=== PATIENT | male | born 2000 | race Caucasian/White ===

== ENCOUNTER 2025-03-13 09:52 | Observation (INO) ==
--- NOTE | 2025-03-13 10:06 | Emergency Department Note ---
Impression & Plan Hydronephrosis, right, Right ureteral calculus, Vomiting ED Provider Note NAME: ILIR DANIEL AGE: 24 SEX: M : 2000 ARRIVES VIA: Walk-In INFORMANT: Patient ED PROVIDER(S): Pablo Diego DO CHIEF COMPLAINT: Right lower quadrant abdominal pain HPI: Patient is a 24-year-old male who presents to the ER for dysuria which has been going on for the past 3 days. He notes right lower quadrant pain that started today. He admits to nausea and vomiting. Denies any headache or change in vision. No testicle swelling or pain. No urgency or frequency. Father provides additional history and notes that he has had previous surgery which includes cholecystectomy. No other exacerbating or remitting factors. ADDITIONAL HISTORY OBTAINED: Per HPI Chronic Medical/Social Conditions Affecting Care: Per HPI PAST MEDICAL HISTORY:See Below PAST SURGICAL HISTORY:See Below FAMILY HISTORY:See Below SOCIAL HISTORY:See Below HOME MEDICATIONS:See Below ALLERGIES:See Below VITALS:See Below PHYSICAL EXAMINATION: GENERAL: Sitting up in bed, alert, significant distress holding right side EYE EXAM: normal conjunctiva. OROPHARYNX: no exudate, no erythema, lips, buccal mucosa, and tongue normal and mucous membranes are moist NECK: supple, no nuchal rigidity, no adenopathy, non-tender LUNGS: Clear to auscultation. Normal chest wall mechanics HEART: no murmurs, S1 normal and S2 normal ABDOMEN: abdomen soft, tender palpation right lower quadrant, normo-active bowel sounds, no masses, no rebound or guarding. : No testicular swelling or pain. UPPER EXTREMITIES: upper extremities are grossly normal. LOWER EXTREMITIES: No pitting edema. NEURO EXAM: Normal sensorium, cranial nerves II-XII grossly intact, normal speech, no gross weakness of arms, no gross weakness of legs. MEDICAL DECISION MAKING: Patient is a 24-year-old male who presents ER for above-stated complaint. IV was established blood work is obtained. Labs show no significant leukocytosis or anemia. BMP with LFTs bilirubin and lipase is unremarkable. UA with hematuria. No signs of infection. CT abdomen pelvis suggested a 4 mm distal UVJ stone. He had persistent vomiting while in the ER. Was given IV Zofran, IV Reglan and IV Phenergan and still vomiting. He was given multiple dose of IV narcotics. He was updated at bedside. Discussed case with the hospitalist for further evaluation management treatment. Consults/Care Managements Discussions: Per MDM Triage Nursing notes reviewed. Limited review of prior medical records performed Vital Signs: reviewed and remarkable for no significant abnormalities Differential diagnosis: Differential diagnoses includes but is not limited to gastritis, peptic ulcer disease, GERD, gallbladder disease, pancreatitis, small bowel obstruction, appendicitis, diverticulitis, hernia, urinary tract infection, torsion, perforation, trauma, infectious. ER treatment provided: See below Diagnostics interpreted by me include EKG and cardiac monitoring as listed below: -Cardiac Monitoring: An order was placed for continuous cardiac monitoring. The monitor shows a rate of 70 with sinus rhythm. -ECG: none -Laboratory studies:Interpreted by me as stated above in MDM and shown below. Imaging studies: Xrays: As interpreted by me:none CTs show: CT abdomen pelvis per my pulmonary interpretation shows hydronephrosis CT Abdo pelvis per radiology as described above Procedures:none Critical Care: None Past Med/Surg History Problem List (Updated 03/13/25 @ 15:45 by Pablo Diego DO) Vomiting (Acute) Right ureteral calculus (Acute) Hydronephrosis, right (Acute) Afterimage Asthma Surgical History History of cholecystectomy Hx of tonsillectomy [place] teeth extracted Family History Father Asthma Hypertension Grandfather (Maternal) Colorectal cancer Denies family history of Ovarian cancer Prostate cancer Diabetes Heart disease Myocardial infarction Breast cancer Lung cancer COPD (chronic obstructive pulmonary disease) Pulmonary embolism Stroke Social History Smoking Status: Never smoker Second Hand Exposure: No; Do You Dip or Chew Tobacco: No; Hx Alcohol Use: Yes Hx Substance Use: No Preferred Language: Malay Communication Ability: Effective Visual Impairment: No Limitations Hearing Ability: Normal marital status: Current Living Situation: Spouse Current Living Situation Comment: current occupational status: employed current occupation: real estate financial analyst How many Children do You have: 0 Feels Safe at Home: Yes Childhood Exposure to Second-Hand Smoke: No Diet: regular caffeine: Yes during the past year weight has: remained stable Dental Care, Regularly: Yes Physical Activity Frequency: 5-6 Times per Week Seatbelt Use: always Sunscreen Use: Yes Assistive Devices: None Allergies Allergies Allergy/AdvReac Type Severity Reaction Status Date / Time Penicillins Allergy Severe Verified 01/16/25 08:17 latex Allergy Intermediate Verified 01/16/25 08:17 Home Meds Home Medications Medication Instructions Recorded Confirmed albuterol inhaler inhalation PRN 08/07/23 01/16/25 fish oil supplement PO DAILY 01/16/25 vitamin d3 PO DAILY 01/16/25 Results & Data (ED) Vital Signs Vital Signs - 24 hr 03/13/25 09:54 03/13/25 09:58 03/13/25 11:00 Temperature 36.3 C L Temperature Source Oral Pulse Rate 67 67 64 Pulse Rate from SpO2 Sensor 63 Pulse Rhythm Regular Respiratory Rate 24 20 14 Respiratory Effort / Characteristics Non-Labored Spontaneous Respiratory Depth Normal Respiratory Pattern Tachypnea Blood Pressure 156/111 H 147/102 H Blood Pressure Mean 126 117 Blood Pressure Position Sitting Pulse Oximetry 100 97 98 Oxygen Delivery Method Room Air Room Air Sepsis Recent Fever Within 48 Hours No Sepsis New/Unexplained Change in Mental Status No Sepsis Action Taken by Nursing No Action Required 03/13/25 11:33 03/13/25 12:00 03/13/25 12:18 Temperature Temperature Source Pulse Rate 57 L 72 65 Pulse Rate from SpO2 Sensor 58 L 71 Pulse Rhythm Respiratory Rate 18 21 Respiratory Effort / Characteristics Respiratory Depth Respiratory Pattern Blood Pressure 154/101 H 144/93 H Blood Pressure Mean 118 110 Blood Pressure Position Pulse Oximetry 98 97 Oxygen Delivery Method Sepsis Recent Fever Within 48 Hours Sepsis New/Unexplained Change in Mental Status Sepsis Action Taken by Nursing 03/13/25 12:39 03/13/25 13:18 03/13/25 14:03 Temperature Temperature Source Pulse Rate 67 72 68 Pulse Rate from SpO2 Sensor 66 69 69 Pulse Rhythm Respiratory Rate 20 22 18 Respiratory Effort / Characteristics Respiratory Depth Respiratory Pattern Blood Pressure 148/91 H 148/92 H 139/94 Blood Pressure Mean 110 110 109 Blood Pressure Position Pulse Oximetry 97 97 97 Oxygen Delivery Method Sepsis Recent Fever Within 48 Hours Sepsis New/Unexplained Change in Mental Status Sepsis Action Taken by Nursing Laboratory Data 03/13/25 10:07 03/13/25 10:07 Lab Results 03/13/25 03/13/25 Range/Units 10:05 10:07 WBC 5.41 (4.8-10.8) K/ul RBC 5.67 (4.70-6.10) M/uL Hgb 16.0 (14.0-18.0) g/dl Hct 46.6 (42.0-52.0) % MCV 82.2 (80.0-100.0) fL MCH 28.2 (25.0-34.0) pg MCHC 34.3 (32.0-36.0) g/dL RDW Std Deviation 37.0 (36.4-46.3) fL RDW Coeff of [place] 12.3 (11.5-14.5) % Plt Count 284 (130-400) K/uL MPV 10.0 (9.4-12.4) fL Immature Gran % (Auto) 0.2 % Neut % (Auto) 46.1 % Lymph % (Auto) 43.1 % [place] % (Auto) 6.7 % Eos % (Auto) 2.6 % Baso % (Auto) 1.3 % Neut # (Auto) 2.50 (1.40-6.50) K/uL Lymph # (Auto) 2.33 (1.20-3.40) K/uL [place] # (Auto) 0.36 (0.11-0.59) K/uL Eos # (Auto) 0.14 (0.00-0.50) K/uL Baso # (Auto) 0.07 (0.00-0.20) K/uL Immature Gran # (Auto) 0.01 (0.01-0.20) K/uL Sodium 140 (136-145) mmol/L Potassium 3.6 (3.5-5.1) mmol/L Chloride 102 (98-107) mmol/L Carbon Dioxide 23 (21-32) mmol/L Anion Gap 15 H (3-11) BUN 16 (6-23) mg/dl Creatinine 1.31 (0.6-1.4) mg/dl Est Cr Clr Drug Dosing Not Reportable eGFR 76.99 BUN/Creatinine Ratio 12.2 (10-20) Glucose 140 H (70-99(Fasting)) mg/dl Calcium 10.0 (8.6-10.3) mg/dl Total Bilirubin 0.9 (0.2-1.0) mg/dl AST 26 (13-39) U/L ALT 16 (7-52) U/L Alkaline Phosphatase 61 (34-104) U/L Total Protein 8.0 (6.0-8.3) gm/dl Albumin 4.9 (3.4-5.0) gm/dl Globulin 3.1 (2.5-4.0) gm/dl Albumin/Globulin Ratio 1.6 (0.9-2) Lipase 20 (11-82) U/L Urine Color Yellow Urine Appearance Clear (Clear) Urine pH 6.0 (4.5-7.5) Ur Specific [place] 1.025 (1.000-1.030) Urine Protein Trace H (Negative) Urine Glucose (UA) Negative (Negative) Urine Ketones 1+ H (Negative) Urine Blood 2+ H (Negative) Urine Nitrite Negative (Negative) Urine Bilirubin Negative (Negative) Urine Urobilinogen Negative (Negative) Ur Leukocyte Esterase Negative (Negative) Urine WBC (Auto) 0-5 (0-5) /hpf Urine RBC (Auto) >20 H (0-2) /hpf U Hyaline Cast (Auto) 0-2 (0-2) /lpf U Epithel Cells (Auto) 0-2 (0-2) /hpf Urine Bacteria (Auto) None Seen (None Seen) Urine Comment Administered Medications Sodium Chloride (Nss) 1,000 mls @ 125 mls/hr IV .Q8H [facility] Stop: 03/16/25 14:14 Last Admin: 03/13/25 15:08 Dose: 125 mls/hr Documented By: VILMA Discontinued Medications Sodium Chloride (Nss) 1,000 mls @ 999 mls/hr IV .Q1H1M ONE Stop: 03/13/25 10:58 Last Infusion: 03/13/25 11:43 Dose: Infused Documented By: Admin: 03/13/25 10:12 Dose: 999 mls/hr Documented By: SOFIA Sodium Chloride (Nss) 1,000 mls @ 999 mls/hr IV .Q1H1M [facility] Stop: 03/13/25 12:15 Last Admin: 03/13/25 11:43 Dose: Not Given Documented By: Infusion: 03/13/25 11:43 Dose: Infused Documented By: Admin: 03/13/25 10:12 Dose: 999 mls/hr Documented By: SOFIA Promethazine HCl (Phenergan) 25 mg in 51 mls @ 204 mls/hr IV NOW STA Stop: 03/13/25 13:44 Last Infusion: 03/13/25 14:20 Dose: Infused Documented By: Admin: 03/13/25 13:44 Dose: 204 mls/hr Documented By: RAUL Ioversol (Optiray 320 100ml) 94 ml IV ONCE ONE Stop: 03/13/25 11:46 Last Admin: 03/13/25 11:45 Dose: 94 ml Documented By: JOEL Ketorolac Tromethamine (Ketorolac Tromethamine 15 Mg/Ml Vial) 15 mg IV NOW ONE Stop: 03/13/25 10:04 Last Admin: 03/13/25 10:14 Dose: 15 mg Documented By: SOFIA Metoclopramide HCl (Metoclopramide Hcl Inj 5 Mg/Ml 2 Ml Vial) 10 mg IV NOW STA Stop: 03/13/25 11:21 Last Admin: 03/13/25 11:37 Dose: 10 mg Documented By: SOFIA Morphine Sulfate (Morphine Sulfate 4 Mg/Ml 1 Ml Carp\Vial) 4 mg IV NOW STA Stop: 03/13/25 10:04 Last Admin: 03/13/25 10:14 Dose: 4 mg Documented By: SOFIA Morphine Sulfate (Morphine Sulfate 4 Mg/Ml 1 Ml Carp\Vial) 4 mg IV NOW STA Stop: 03/13/25 11:21 Last Admin: 03/13/25 11:37 Dose: 4 mg Documented By: SOFIA Morphine Sulfate (Morphine Sulfate 4 Mg/Ml 1 Ml Carp\Vial) 4 mg IV NOW STA Stop: 03/13/25 13:31 Last Admin: 03/13/25 13:44 Dose: 4 mg Documented By: RAUL Ondansetron HCl (Ondansetron Inj 2 Mg/Ml 2 Ml Vial) 4 mg IV NOW STA Stop: 03/13/25 09:59 Last Admin: 03/13/25 10:12 Dose: 4 mg Documented By: SOFIA Imaging Data Radiologist's Impression: Abdomen/Pelvis CT 03/13/25 10:[address] WITH IV CONTRAST CT DOSE: 874.03 mGy.cm HISTORY: Acute right lower quadrant abdominal pain rlq abd pain TECHNIQUE: Multiaxial CT images of the abdomen and pelvis were performed following the IV administration of 94 cc of Optiray, A dose lowering technique was utilized adhering to the principles of ALARA. COMPARISON STUDY: None. FINDINGS: The lung bases are clear. Cholecystectomy. Periportal edema likely related to overhydration. The portal vein. The liver, spleen, and agree, and adrenal glands are within normal limits. 4 mm nonobstructing calculus at the interpolar right kidney. Delayed right-sided nephrogram with mild hydroureteronephrosis and perinephric stranding secondary to an obstructing 4 mm calculus of the right UVJ. Decompressed urinary bladder with mild wall thickening. Tiny hiatal hernia. No bowel wall thickening or obstruction. Normal appendix. Unremarkable soft tissues. Transitional lumbosacral anatomy. No acute fracture. IMPRESSION: 1. Mild right-sided hydroureteronephrosis secondary to an obstructing 4 mm calculus of the right UVJ. 2. Nonobstructing right nephrolithiasis. 3. Normal appendix. ACT 112: Negative or not required by law. The above report was generated using voice recognition software. It may contain grammatical, syntax or spelling errors. Electronically signed by: Ervin Egan M.D. 03/13/2025 12:47 PM Discharge Plan Visit Data Chief Complaint: Abdominal Pain Stated Complaint: SEVERE ABDOMINAL PAIN, SHAKES ED Provider: Pablo Diego Discharge Problem: Hydronephrosis, right, Right ureteral calculus, Vomiting Condition: Fair Forms Stand Alone Forms: [employer] Prescriptions Prescriptions: No Action albuterol inhaler inhalation PRN vitamin d3 PO DAILY fish oil supplement PO DAILY Referrals Referrals: Bird Gonzalez DO [Primary Care Provider] - Discharge Problem: Vomiting Qualifiers: Vomiting type: unspecified Nausea presence: unspecified Qualified Code(s): R 11.10 - Vomiting, unspecified
[2025-03-13] MEDS: SODIUM CHLORIDE 0.9% 1,000 ML IV ONE (10:12)
[2025-03-13] MEDS: SODIUM CHLORIDE 0.9% 1,000 ML IV SCH ×2 (10:12→15:08)
[2025-03-13] MEDS: ONDANSETRON INJ 2 MG/ML 2 ML VIAL IV STA (10:12)
[2025-03-13] MEDS: KETOROLAC TROMETHAMINE 15 MG/ML VIAL IV ONE (10:14)
[2025-03-13] MEDS: MoRPHine SULFATE 4 MG/ML 1 ML CARP\\VIAL IV STA ×3 (10:14→13:44)
[2025-03-13 10:32] LABS: Hematocrit (blood only) 46.6 % (42.0-52.0); Hemoglobin 16.0 g/dl (14.0-18.0); Immature Granulocytes # (auto) 0.01 K/uL (0.01-0.20); Immature Granulocytes % (auto) 0.2 %; Mean Corpuscular Hemoglobin 28.2 pg (25.0-34.0); Mean Corpuscular Volume 82.2 fL (80.0-100.0); Platelet Count 284 K/uL (130-400); RDW Standard Deviation 37.0 fL (36.4-46.3); Red Blood Count 5.67 M/uL (4.70-6.10); White Blood Count 5.41 K/ul (4.8-10.8)
[2025-03-13 11:04] LABS: Appearance Urine Clear (Clear); Bacteria Urine Automated None Seen (None Seen); Cast Urine Automated 0-2 /lpf (0-2); Epithelial Cell Urine Auto 0-2 /hpf (0-2); Glucose Urine UA Negative (Negative); RBC Urine Automated >20 /hpf (0-2); WBC Urine Automated 0-5 /hpf (0-5)
[2025-03-13 11:35] LABS: Alanine Aminotransferase 16 U/L (7-52); Albumin Globulin Ratio 1.6 (0.9-2); Albumin Level 4.9 gm/dl (3.4-5.0); Alkaline Phosphatase 61 U/L (34-104); Anion Gap 15 (3-11); Bilirubin,Total 0.9 mg/dl (0.2-1.0); Blood Urea Nitrogen 16 mg/dl (6-23); Calcium 10.0 mg/dl (8.6-10.3); Carbon Dioxide 23 mmol/L (21-32); Chloride 102 mmol/L (98-107); Globulin 3.1 gm/dl (2.5-4.0); Glucose 140 mg/dl (70-99(Fasting)); Lipase 20 U/L (11-82); Potassium 3.6 mmol/L (3.5-5.1); Sodium 140 mmol/L (136-145); Total Protein 8.0 gm/dl (6.0-8.3)
[2025-03-13] MEDS: METOCLOPRAMIDE HCL INJ 5 MG/ML 2 ML VIAL IV STA (11:37)
[2025-03-13] MEDS: OPTIRAY 320 100ml IV ONE (11:45)
--- NOTE | 2025-03-13 12:49 | CT Scan Report ---
ABDOMEN AND PELVIS CT WITH IV CONTRAST CT DOSE: 874.03 mGy.cm HISTORY: Acute right lower quadrant abdominal pain rlq abd pain TECHNIQUE: Multiaxial CT images of the abdomen and pelvis were performed following the IV administrat ion of 94 cc of Optiray, A dose lowering technique was utilized adhering to the principles of ALARA. COMPARISON STUDY: None. FINDINGS: The lung bases are clear. Cholecystectomy. Periportal edema likely related to overhydration . The portal vein. The liver, spleen, and agree, and adrenal glands are within normal limits. 4 mm no nobstructing calculus at the interpolar right kidney. Delayed right-sided nephrogram with mild hydrou reteronephrosis and perinephric stranding secondary to an obstructing 4 mm calculus of the right UVJ. Decompressed urinary bladder with mild wall thickening. Tiny hiatal hernia. No bowel wall thickening or obstruction. Normal appendix. Unremarkable soft tissues. Transitional lumbosacral anatomy. No acu te fracture. IMPRESSION: 1. Mild right-sided hydroureteronephrosis secondary to an obstructing 4 mm calculus of the right UVJ. 2. Nonobstructing right nephrolithiasis. 3. Normal appendix. ACT 112: Negative or not required by law. The above report was generated using voice recognition software. It may contain grammatical, syntax o r spelling errors. Electronically signed by: Ervin Egan M.D. 03/13/2025 12:47 PM
[2025-03-13] MEDS: PROMETHAZINE 25 MG/51 ML BAG IV STA (13:44)
--- NOTE | 2025-03-13 14:11 | History & Physical Report ---
Date of Service March 13, 2025 Assessment & Plan (1) Hydronephrosis, right: Plan: Assessment: 1. Right-sided obstructing urolithiasis 4 mm stone at the right UVJ with associated right-sided hydro ureter and hydronephrosis. NPO. IV fluids. Strain all urine. Urology consulted. Will consider antibiotics if the patient spikes a fever or a leukocytosis excetra. 2. Refractory nausea vomiting secondary to #1. Symptomatic management. 3. Remote history of asthma with no evidence of acute exacerbation. Plan: As discussed above. Please refer to orders for further planning. History of Present Illness Chief Complaint: Right-sided flank pain Primary Care Provider: Bird Gonzalez DO This is a pleasant 24-year-old male who developed right-sided flank pain around 9:00 this morning. He is never had pain like this. It was severe. He presented to the ER for further evaluation and treatment. In the ER his urinalysis showed 2+ blood. Otherwise was negative for infection. CT of the abdomen pelvis showed a right sided 4 mm stone with associated right- sided hydronephrosis. Course in the ER he received a dose of Toradol a total of 12 mg of IV morphine IV promethazine as well as a liter of saline. We are called admit the patient for further evaluation and treatment with ongoing refractory nausea vomiting and pain due to his obstructive uropathy. He is placed a notification in consult to urology for consultation. Will keep the patient NPO. Strain his urine hydrate aggressively as needed antiemetics and analgesics. Allergies Allergy/AdvReac Type Severity Reaction Status Date / Time Penicillins Allergy Severe Verified 01/16/25 08:17 latex Allergy Intermediate Verified 01/16/25 08:17 Home Medications Medication Instructions Recorded Confirmed Type albuterol inhaler inhalation PRN 08/07/23 01/16/25 History fish oil supplement PO DAILY 01/16/25 History vitamin d3 PO DAILY 01/16/25 History Past Med/Surg History Problem List (Updated 03/13/25 @ 14:09 by Agusto Whitley, PhD, ) Hydronephrosis, right Afterimage Asthma Surgical History History of cholecystectomy Hx of tonsillectomy [place] teeth extracted Family History Father Asthma Hypertension Grandfather (Maternal) Colorectal cancer Denies family history of Ovarian cancer Prostate cancer Diabetes Heart disease Myocardial infarction Breast cancer Lung cancer COPD (chronic obstructive pulmonary disease) Pulmonary embolism Stroke Social History Smoking Status: Never smoker Second Hand Exposure: No; Do You Dip or Chew Tobacco: No; Hx Alcohol Use: Yes Hx Substance Use: No Preferred Language: Divehi Communication Ability: Effective Visual Impairment: No Limitations Hearing Ability: Normal marital status: Current Living Situation: Spouse Current Living Situation Comment: current occupational status: employed current occupation: financial advocate How many Children do You have: 0 Feels Safe at Home: Yes Childhood Exposure to Second-Hand Smoke: No Diet: regular caffeine: Yes during the past year weight has: remained stable Dental Care, Regularly: Yes Physical Activity Frequency: 5-6 Times per Week Seatbelt Use: always Sunscreen Use: Yes Assistive Devices: None Review of Systems Review of Systems: A 10 point review of system was obtained and unless otherwise stated here or in history of present illness are negative and noncontributory to chief complaint. Physical Exam Physical Exam: In General: In general pleasant 24-year-old male who is alert and oriented to person and place. He is a little drowsy from the morphine. However he is alert and oriented. He is accompanied by his as well as his mother. He granted permission for both ladies to be present during my interview and exam. Reports that he is a non-smoker does not use alcohol or tobacco products no street drugs is employed as a controller. HEENT: Normocephalic atraumatic pupils are equal round and reactive to light bilaterally. No scleral icterus no conjunctival injection external auditory canals are patent septum is in the midline nose is without discharge oral mucosa is pink and moist without lesion. NECK: Supple no rigidity no lymphadenopathy no thyromegaly no carotid bruits no JVD no masses. HEART: Regular rate and rhythm I do not appreciate any ectopy or rub. No murmur. LUNGS: Clear to auscultation bilaterally and anteriorly with no evidence of adventitious sounds/wheezes rales or rhonchi. ABDOMEN: Soft nontender, no rebound, no peritoneal signs, positive bowel sounds, no appreciable organomegaly. EXTREMITIES: Intact, no peripheral cyanosis, clubbing or edema. Strength is adequate and equal.. NEUROLOGICAL: Cranial nerves II through XII are grossly intact with no focal deficit elicited upon examination. Results & Data Results & Data Vital Signs (Past 12 Hours) Vital Signs Temp Pulse Resp BP Pulse Ox O2 Del Method 03/13/25 12:39 67 20 148/91 H 97 03/13/25 12:18 65 03/13/25 12:00 72 21 144/93 H 97 03/13/25 11:33 57 L 18 154/101 H 98 03/13/25 11:00 64 14 147/102 H 98 03/13/25 09:58 67 20 97 Room Air 03/13/25 09:54 36.3 C L 67 24 156/111 H 100 Room Air Code Status & VTE Plan Code Status Full code. I personally discussed with patient and family at bedside VTE Prophylaxis Plan VTE Prophylaxis will be ordered: Yes PG Care Time/CCT Total # of Minutes Spent Total Time Spent with Patient: Total time spent is greater than 50% in coordination of care (as documented) at patient's floor/unit and/or counseling patient: Coding Level of Care Code 06589 INT INP/OBS CARE 2/55MIN Diagnoses Hydronephrosis, right N13.30
--- NOTE | 2025-03-13 14:38 | Urology Consultation ---
Date of Consultation March 13, 2025 Assessment & Plan (1) Hydronephrosis, right: (2) Right ureteral calculus: Plan 24-year-old male who presented with right flank pain since early this morning. Afebrile with stable vitals. Labs showed a white count of 5.4, creatinine of 1.31 and a urinalysis that was negative outside of microscopic hematuria. A CT scan showed a 4 mm distal right obstructing ureteral calculus and some nonobstructing right renal calculi. I discussed options with him including medical expulsive therapy versus right ureteral stent placement. Based on his level pain control, I suggested a stent placement as I do not think he will tolerate medical expulsive therapy, however he declined. We discussed the chances of him passing the stone and the timeframe it may take. As the patient declined stent placement, we will proceed with medical expulsive therapy. Recommend Flomax and pain control. Urology will sign off. A message has been sent to schedule outpatient follow-up with an ultrasound to confirm passage of stone. I did discuss with the patient that if he declined a stent now, and changed his mind and wanted one later it may not be possible simply based on logistics and availability of on-call surgeon. He expressed understanding. History of Present Illness History of Present Illness 24-year-old male who presented with right flank pain since early this morning. Afebrile with stable vitals. Labs showed a white count of 5.4, creatinine of 1.31 and a urinalysis that was negative outside of microscopic hematuria. A CT scan showed a 4 mm distal right obstructing ureteral calculus and some nonobstructing right renal calculi. He was admitted for pain control and urology was consulted. He was fairly somnolent at the bedside due to pain medication so he was hard to get a good history on. Allergies Allergy/AdvReac Type Severity Reaction Status Date / Time Penicillins Allergy Severe Verified 01/16/25 08:17 latex Allergy Intermediate Verified 01/16/25 08:17 Home Medications Medication Instructions Recorded Confirmed Type albuterol inhaler inhalation PRN 08/07/23 01/16/25 History fish oil supplement PO DAILY 01/16/25 History vitamin d3 PO DAILY 01/16/25 History Patient History Surgical History History of cholecystectomy Hx of tonsillectomy Wall teeth extracted Family History Father Asthma Hypertension Grandfather (Maternal) Colorectal cancer Denies family history of Ovarian cancer Prostate cancer Diabetes Heart disease Myocardial infarction Breast cancer Lung cancer COPD (chronic obstructive pulmonary disease) Pulmonary embolism Stroke Social History Smoking Status: Never smoker Second Hand Exposure: No; Do You Dip or Chew Tobacco: No; Hx Alcohol Use: Yes Hx Substance Use: No Preferred Language: [place] Communication Ability: Effective Visual Impairment: No Limitations Hearing Ability: Normal marital status: Current Living Situation: Spouse Current Living Situation Comment: current occupational status: employed current occupation: vice president financial How many Children do You have: 0 Feels Safe at Home: Yes Childhood Exposure to Second-Hand Smoke: No Diet: regular caffeine: Yes during the past year weight has: remained stable Dental Care, Regularly: Yes Physical Activity Frequency: 5-6 Times per Week Seatbelt Use: always Sunscreen Use: Yes Assistive Devices: None Physical Exam Physical Exam: General: Alert and oriented, no acute distress HEENT: Normocephalic, mucous membranes moist Pulmonary: Nonlabored respirations Abdomen: Nondistended Extremities: Moves all 4 spontaneously Neuro: No gross deficits Skin: Warm, dry, no rashes noted Results & Data Vital Signs (Past 12 Hours) Vital Signs Temp Pulse Resp BP Pulse Ox O2 Del Method 03/13/25 14:03 68 18 139/94 97 03/13/25 13:18 72 22 148/92 H 97 03/13/25 12:39 67 20 148/91 H 97 03/13/25 12:18 65 03/13/25 12:00 72 21 144/93 H 97 03/13/25 11:33 57 L 18 154/101 H 98 03/13/25 11:00 64 14 147/102 H 98 03/13/25 09:58 67 20 97 Room Air 03/13/25 09:54 36.3 C L 67 24 156/111 H 100 Room Air PG Care Time/CCT Total # of Minutes Spent Total Time Spent with Patient: Total time spent is greater than 50% in coordination of care (as documented) at patient's floor/unit and/or counseling patient: Coding Level of Care Code 47159 IN/OBS CONSULT LVL 3,45M Diagnoses Hydronephrosis, right N13.30 Right ureteral calculus N20.1
[2025-03-13] MEDS: HYDROmorphone INJ 0.5 MG/0.5 ML SYR IV PRN (18:00)
[2025-03-13] MEDS: ONDANSETRON INJ 2 MG/ML 2 ML VIAL IV PRN (18:00)
[2025-03-13] MEDS: TAMSULOSIN HCL 0.4 MG CAP PO ONE (22:43)
[2025-03-14 07:00] VITALS: BP 131/81; PULSE 88; RESP 18; TEMP 98.4; O2SAT 97
[2025-03-14 07:12] LABS: Alanine Aminotransferase 11.0 U/L (7-52); Albumin Globulin Ratio 2.0 (0.9-2); Albumin Level 3.8 gm/dl (3.4-5.0); Alkaline Phosphatase 41.0 U/L (34-104); Anion Gap 5.0 (3-11); Bilirubin,Total 1.2 mg/dl (0.2-1.0); Blood Urea Nitrogen 10.0 mg/dl (6-23); Calcium 8.5 mg/dl (8.6-10.3); Carbon Dioxide 27.0 mmol/L (21-32); Chloride 109.0 mmol/L (98-107); Cholesterol 82.0 mg/dl (0-200); Creatinine Clr Calc Pharmacy 102.1 ml/min; Globulin 1.9 gm/dl (2.5-4.0); Glucose 89.0 mg/dl (70-99(Fasting)); HDL Cholesterol 37.0 mg/dl; Magnesium 1.9 mg/dl (1.7-2.4); Potassium 3.8 mmol/L (3.5-5.1); Sodium 141.0 mmol/L (136-145); Total Protein 5.7 gm/dl (6.0-8.3); Triglycerides 44.0 mg/dl (0-150)
[2025-03-14 07:21] LABS: Hematocrit (blood only) 39.6 % (42.0-52.0); Hemoglobin 12.8 g/dl (14.0-18.0); Immature Granulocytes # (auto) 0.01 K/uL (0.01-0.20); Immature Granulocytes % (auto) 0.1 %; Mean Corpuscular Hemoglobin 27.0 pg (25.0-34.0); Mean Corpuscular Volume 83.5 fL (80.0-100.0); Platelet Count 185 K/uL (130-400); RDW Standard Deviation 38.1 fL (36.4-46.3); Red Blood Count 4.74 M/uL (4.70-6.10); White Blood Count 7.25 K/ul (4.8-10.8)
[2025-03-14 07:22] LABS: Thyroid Stimulating Hormone 0.757 uIu/ml (0.300-4.500)
[2025-03-14] MEDS: TAMSULOSIN HCL 0.4 MG CAP PO SCH (08:26)
--- NOTE | 2025-03-14 12:25 | Discharge Summary ---
Discharge Summary Date of Service March 14, 2025 Principal Dx & Hospital Course #1 = Principal Diagnosis (1) Hydronephrosis, right: This is a 24 year old male with no significant PMH; coming in with significant R flank pain. In the ER, CT was done and showed a 4mm R UVJ stone with mild hydroureteronephrosis. Labs were drawn and noted to have a creatinine of 1.31. Patient spoke with urology and did not want a stent placed and wanted medication management. Was started on pain control, IV fluids and Flomax. No leukocytosis or fevers noted. Urology stated they would see the patient as an outpatient. Patient states his pain is improving; denies any other issues at this time. Admission HPI Per Admitting Provider This is a pleasant 24-year-old male who developed right-sided flank pain around 9:00 this morning. He is never had pain like this. It was severe. He presented to the ER for further evaluation and treatment. In the ER his urinalysis showed 2+ blood. Otherwise was negative for infection. CT of the abdomen pelvis showed a right sided 4 mm stone with associated right- sided hydronephrosis. Course in the ER he received a dose of Toradol a total of 12 mg of IV morphine IV promethazine as well as a liter of saline. We are called admit the patient for further evaluation and treatment with ongoing refractory nausea vomiting and pain due to his obstructive uropathy. He is placed a notification in consult to urology for consultation. Will keep the patient NPO. Strain his urine hydrate aggressively as needed antiemetics and analgesics. Discharge Exam VITALS: Reviewed. WEIGHT/BMI reviewed. GEN: Healthy appearing, well-developed, NAD. PSYCH: Good Judgment. AOx3. Normal memory, mood, and affect. HEENT -Head: NC/AT; -Eyes: PERRL, EOMI. No discharge or redness; -Ears: External ears are normal. Normal TMs. -Nose: Normal nares. -Mouth and throat: MMM. Normal gums, mucosa, palate,. Good dentition. NECK: Supple, with no masses. CV: RRR, no m/r/g. LUNGS: CTAB, no w/r/c. ABD: Soft, NT/ND, NBS, no masses or organomegaly. : N/A SKIN: Warm, well perfused. No skin rashes or abnormal lesions. MSK: No deformities, Normal gait. EXT: No clubbing, cyanosis, or edema. NEURO: Ambulating with no limitations. Normal muscle strength and tone. No focal deficits. Discharge Plan Discharge Items Patient Disposition: Home - Self-Care Reason For Visit: RIGHT-SIDED FLANK PAIN Discharge Diagnosis: R UVJ stone Condition on Discharge: Fair Activity: Resume your previous activity Non-emergency contact: Primary Care Provider and Urologist Call non-emergency contact if: you have any medication questions, your symptoms worsen, your pain is not controlled, your pain is worsening, your pain is unusual for you, your pain is concerning for you and you have a fever Follow-up/Referrals: Bird Gonzalez, [Primary Care Provider] - Diet: Regular Addtl Attending Provider Instructions: follow-up with urology as an outpatient Pending Studies at Discharge: No Stand-Alone Forms: My [facility], Smoking Cessation Medications and DC Order Prescriptions: New tamsulosin 0.4 mg Capsule 0.4 mg PO QAM Qty: 15 0RF oxycodone-acetaminophen 5-325 mg tablet 1 tab PO .bid prn 3 Days Qty: 7 0RF Continued cholecalciferol (vitamin D3) [Vitamin D3] 125 mcg (5,000 unit) Tablet 125 mcg PO DAILY omega 2-hpg-skr-fish oil [Fish Oil] 1,200 (144-216) mg Capsule 1 cap PO DAILY Discharge Orders: Discharge Order (Routine); Ordered 03/14/25 Ordered By: Leonel Mcallister/Other Patient Handouts: Kidney Stones: Your Evaluation Admission Data Admit Date/Time: 03/13/25 14:04 Attending Provider: Leonel Moore Admit Provider: Agusto Whitley Primary Care Provider: Bird Gonzalez Other Providers: Agusto Whitley Other Interventions: Discharge Summary Assessment (RN) Last Done: 03/14/25 11:47 Hospital Stay Data Consultations 03/13/25 13:30 ED Decision to Admit Stat 03/13/25 14:03 Consult Urology Routine Diagnostic Imagining Performed 03/13/25 10:04 CT abd pelvis IV con only Stat Pending Results Patient Have Any Pending Studies at Discharge: No Discharge Instructions Given to Patient (Per Discharging Provider) follow-up with urology as an outpatient Home Health Attestation I certify that this patient is under my care and that I, or a physicians bilingual administrative assistant working with me, had a face to-face encounter that meets the home health [id number] encounter requirements with this patient. The encounter with the patient was in whole, or in part, for the following medical condition, which is the primary reason for home health care (list medical condition): I certify that, based on my findings, the following services are medically necessary home health services: My clinical findings support the need for the above services because: Further, I certify that my clinical findings support that this patient is homebound (i.e. absences from home require considerable and taxing effort and are for medical reasons or yarsani services or infrequently or of short duration when for other reasons) because: Certification for Home Health Services: Based on the above findings, I certify that this patient is confined to the home and needs intermittent [facility] care, physical therapy and/or speech therapy or continues to need occupational therapy. The patient is under my care, and I have initiated the establishment of the plan of care. This patient will be followed by a physician who will periodically review the plan of care. Total Time Total Time Spent Total Time Spent (In Minutes): 25 Coding Level of Care Code 74149 IN/OBS DISCH 30 MIN/LESS Diagnoses Hydronephrosis, right N13.30 Time Spent (min) 25
[2025-03-14] MEDS ORDERED: INFLUENZA VACC TS2025-26(6m+)/PF (IIV3) 0.5mL Syr IM ONE (17:49)
== END 2025-03-14 14:18 | disposition home or self-care (01) ==
LOC: ED 09:52 → 3W 09:52 → SUATTDRO 14:04 → 3W 16:46